=== PATIENT | female | born 1980 | race Caucasian/White ===

== ENCOUNTER 2016-12-22 21:00 | Inpatient (IN) | payer OTHER ==
[2016-12-22 21:49] VITALS: BMI 33.7
[2016-12-22 21:55] LABS: BASOPHIL 0.1 % (0-2.0); EOSINOPHIL 0.6 % (0-4.5); MCH 29.9 pg (25.7-33.7); MCHC 33.5 g/dl (32.0-36.0); MEAN CELL VOLUME 89.4 fl (80-96); MEAN PLT VOLUME 10.4 fl (7.5-11.1); NEUTROPHILS 70.4 % (42.8-82.8); PLATELET COUNT 121 K/MM3 (134-434); RDW 13.4 % (11.6-15.6); WHITE BLOOD COUNT 9.3 K/mm3 (4.0-10.0)
[2016-12-22 22:14] LABS: INR 0.93 (0.82-1.09); PROTHROMBIN TIME (PATIENT) 10.2 SEC (9.98-11.88)
[2016-12-22] MEDS ORDERED: DEXTROSE 5%-LACTATED RINGERS 1,000 ML IV ONE (22:15)
[2016-12-22 22:17] LABS: ACTIVATED PTT 29.2 SECONDS (26.9-34.4)
[2016-12-22 22:24] LABS: ANION GAP 11 (8-16); CALCIUM 8.7 mg/dL (8.5-10.1); CO2 23 mmol/L (21-32); CREATININE 0.5 mg/dL (0.55-1.02); GLUCOSE,RANDOM 80 mg/dL (74-106)
[2016-12-22] MEDS ORDERED: DEXTROSE 5%-LACTATED RINGERS 1,000 ML IV SCH (23:00)
--- NOTE | 2016-12-22 23:08 | HP ---
Past Medical History - Admission Chief Complaint: Labor pain History of Present Illness: 36 yo @ 39.5 weeks gestation, admitted for labor pain. She denies any vaginal bleeding nor ROM. History Source: Patient Limitations to Obtaining History: No Limitations - Past Medical History ...: 4 ...Para: 2 ...Term: 2 ...: 0 ...Spon : 1 ...Induced : 0 ...Multiple Gestation: 0 ...LMP: 03/26/16 ... Weeks Gestation by Dates: 38.5 ...EDC by Dates: 12/31/16 ...EDC by Sono: 12/24/16 - Past Surgical History Past Surgical History: Yes: None Hx Myomectomy: No Hx Transabdominal Cerclage: No - Smoking History Smoking history: Never smoked - Alcohol/Substance Use Hx Alcohol Use: No History of Substance Use: reports: None - Social History Usual Living Arrangement: Yes: With Spouse History of Recent Travel: No Home Medications - Allergies Allergies/Adverse Reactions: Allergies Allergy/AdvReac Type Severity Reaction Status Date / Time No Known Allergies Allergy Verified 12/22/16 22:01 - Home Medications Home Medications: Ambulatory Orders Vit #108/Iron/FA [ One Tablet] 1 capl PO DAILY 12/22/16 Family Disease History - Family Disease History Family History: Unremarkable Review of Systems - Review of Systems Constitutional: reports: No Symptoms Eyes: reports: No Symptoms HENT: reports: No Symptoms Neck: reports: No Symptoms Cardiovascular: reports: No Symptoms Respiratory: reports: No Symptoms Gastrointestinal: reports: No Symptoms Genitourinary: reports: Pain Breasts: reports: No Symptoms Reported Musculoskeletal: reports: No Symptoms Integumentary: reports: No Symptoms Neurological: reports: No Symptoms Endocrine: reports: No Symptoms Pain Intensity: 7 Physical Exam - Maternity Vital Signs: Vital Signs Temperature 98.0 F 12/22/16 22:00 Pulse Rate 69 12/22/16 22:00 Respiratory Rate 20 12/22/16 22:00 Blood Pressure 131/73 12/22/16 22:00 O2 Sat by Pulse Oximetry (%) Constitutional: Yes: Well Nourished Eyes: Yes: Conjunctiva Clear HENT: Yes: Atraumatic Neck: Yes: Supple, Trachea Midline Cardiovascular: Yes: Regular Rate and Rhythm Lungs: Clear to auscultation - Abdominal Exam/OB Number of Fetuses: Single Presentation: Vertex - Vaginal Exam/OB Vaginal Bleediing: No Presentation: Vertex/Position Station: -2 - Physical Exam ...Motor Strength: WNL Psychiatric: Yes: Alert, Oriented - Labs Lab Results: CBC, BMP 12/22/16 21:35 12/22/16 21:35 Problem List - Problems (1) Pain during labor Code(s): O99.89 - OTH DISEASES AND CONDITIONS COMPL PREG/CHLDBRTH R52 - PAIN, UNSPECIFIED Assessment/Plan Active labor Admit to L&D Analgesia PRN pain Anticipate
[2016-12-22] MEDS ORDERED: OXYTOCIN 15 UNITS/ LR 250 ML 250 ML IVPB SCH (23:15)
[2016-12-22] MEDS ORDERED: BUTORPHANOL TARTRATE 1 MG/ML VIAL IVPUSH PRN (23:42)
[2016-12-23] MEDS ORDERED: IBUPROFEN 600 MG TABLET (FP) PO PRN (00:21)
[2016-12-23] MEDS ORDERED: BENZOCAINE 28 GM HEMORRHOIDAL OINTMENT TP PRN (00:21)
[2016-12-23] MEDS ORDERED: BENZOCAINE 20% 57 GM BOTTLE TP PRN (00:21)
[2016-12-23] MEDS ORDERED: WITCH HAZEL 50% (TUCKS) 40 PAD/JAR PAD TP PRN (00:21)
[2016-12-23] MEDS ORDERED: ACETAMINOPHEN 325 MG TABLET (FP) PO PRN (00:21)
[2016-12-23] MEDS ORDERED: METHYLERGONOVINE MALEATE 0.2 MG/1 ML AMP IM PRN (00:21)
[2016-12-23] MEDS ORDERED: BISACODYL 10 MG SUPP.RECT RC PRN (00:21)
--- NOTE | 2016-12-23 00:26 | PN ---
Delivery - Delivery Vaginal Delivery: Spontaneous Episiotomy/Laceration: None EBL (cc): 300 Delivery, Single - Feeding Plan Initial Plan: Exclusive throughout hospitalization Remarks - Remarks Remarks: Normal spontaneous vaginal delivery of a live over midline episiotomy. Nose / Oropharynx suctioned @ perineum. Nuchal cord x 1 cut and clamped. Episiotomy repaired with 2.0 Chromic.
[2016-12-23] MEDS ORDERED: D5W-LR W/ 20 UNITS OXYTOCIN 1,000 ML IV SCH (00:30)
[2016-12-23] MEDS: FERROUS SO4 325 MG TABLET (FP) PO SCH ×3 (08:39→17:18)
[2016-12-23] MEDS: PRENATAL VITAMINS W/ FOLIC ACID TABLET (FP) PO SCH (09:10)
[2016-12-24 07:39] LABS: BASOPHIL 0.3 % (0-2.0); EOSINOPHIL 1.5 % (0-4.5); MCH 30.4 pg (25.7-33.7); MCHC 33.7 g/dl (32.0-36.0); MEAN CELL VOLUME 90.3 fl (80-96); MEAN PLT VOLUME 9.9 fl (7.5-11.1); NEUTROPHILS 63.3 % (42.8-82.8); PLATELET COUNT 112 K/MM3 (134-434); RDW 13.4 % (11.6-15.6); WHITE BLOOD COUNT 8.7 K/mm3 (4.0-10.0)
[2016-12-24] MEDS: FERROUS SO4 325 MG TABLET (FP) PO SCH ×3 (07:56→17:17)
[2016-12-24] MEDS: PRENATAL VITAMINS W/ FOLIC ACID TABLET (FP) PO SCH (09:29)
--- NOTE | 2016-12-24 12:44 | PN ---
Post Progress Note - Subjective Subjective: no complains Post Day: 1 Type of Delivery: Vital Signs: Vital Signs Temperature 97.6 F 12/24/16 09:51 Pulse Rate 70 12/24/16 09:51 Respiratory Rate 18 12/24/16 09:51 Blood Pressure 102/67 12/24/16 09:51 O2 Sat by Pulse Oximetry (%) 100 12/23/16 01:10 Breast Exam: Yes: Soft, Other (Bf ). No: Engorged Uterus: Yes: Fundus Firm, Fundus below umbilicus, Non-tender Lochia: Yes: Rubra Lochia, amount: Moderate Extremities: Yes: Calves non-tender. No: Edema Perineum: Yes: Intact, Laceration (suturing done . healing ) Activity: Ambulating - Labs Labs: CBC WBC 8.7 K/mm3 (4.0-10.0) 12/24/16 06:00 RBC 4.03 M/mm3 (3.60-5.2) 12/24/16 06:00 Hgb 12.2 GM/dL (10.7-15.3) 12/24/16 06:00 Hct 36.4 % (32.4-45.2) 12/24/16 06:00 MCV 90.3 fl (80-96) 12/24/16 06:00 MCH 30.4 pg (25.7-33.7) 12/24/16 06:00 MCHC 33.7 g/dl (32.0-36.0) 12/24/16 06:00 RDW 13.4 % (11.6-15.6) 12/24/16 06:00 Plt Count 112 K/MM3 (134-434) L 12/24/16 06:00 MPV 9.9 fl (7.5-11.1) 12/24/16 06:00 Neutrophils % 63.3 % (42.8-82.8) 12/24/16 06:00 Lymphocytes % 27.7 % (8-40) D 12/24/16 06:00 Monocytes % 7.2 % (3.8-10.2) 12/24/16 06:00 Eosinophils % 1.5 % (0-4.5) D 12/24/16 06:00 Basophils % 0.3 % (0-2.0) 12/24/16 06:00 Assessment/Plan stable plan discharge tomorrow.
[2016-12-24] MEDS ORDERED: SENNOSIDES/DOCUSATE COMBO (SENNA PLUS) TABLET (UD) PO PRN (22:00)
[2016-12-25 01:40] VITALS: PULSE 18
--- NOTE | 2016-12-25 08:09 | DS ---
Physical Exam-[employer] Vital Signs: Vital Signs Temperature 98.6 F 12/24/16 22:00 Pulse Rate 18 L 12/24/16 22:00 Respiratory Rate 86 H 12/24/16 22:00 Blood Pressure 110/72 12/24/16 22:00 O2 Sat by Pulse Oximetry (%) 100 12/23/16 01:10 Constitutional: Yes: Well Nourished, No Distress, Calm Eyes: Yes: WNL, Conjunctiva Clear, EOM Intact HENT: Yes: WNL, Atraumatic, Normocephalic Neck: Yes: WNL, Supple, Trachea Midline Cardiovascular: Yes: WNL, Regular Rate and Rhythm Respiratory: Yes: WNL, Regular, CTA Bilaterally Gastrointestinal: Yes: WNL ...Rectal Exam: Yes: WNL Renal/: Yes: WNL ....Post : Yes: Uterus firm, Uterus non-tender, Slight lochia rubra Breast(s): Yes: WNL Musculoskeletal: Yes: WNL Extremities: Yes: WNL Edema: No Integumentary: Yes: WNL Neurological: Yes: WNL, Alert, Oriented ...Motor Strength: WNL Psychiatric: Yes: WNL, Alert, Oriented Labs: CBC, BMP 12/24/16 06:00 12/22/16 21:35 Delivery - Delivery Vaginal Delivery: Spontaneous Type of Anesthesia: Local Episiotomy/Laceration: Midline EBL (cc): 300 Delivery, Single - Stages of Labor Date 1st Stage Initiatied: 12/22/16 Time 1st Stage Initiated: 12:00 Date 2nd Stage Initiated: 12/22/16 Time 2nd Stage Initiated: 23:50 Date of Delivery: 12/23/16 Time of Delivery: 00:01 Time Placenta Delivered: 00:05 Placenta: Yes: Spontaneous - Condition of Retanner/Keg Varnisher Present: No Infant Gender: Male Weight: 8 lb 3 oz Total Hours ROM (Hrs/Mins): 1h16m - 1 Minute Total Score: 8 5 Minutes Total Score: 9 - [place] Feeding Plan Initial Plan: Exclusive throughout hospitalization Discharge Summary Reason For Visit: ADMIT FOR LABOR Current Active Problems Pain during labor (Acute) Procedures: Principal: Condition: Good - Instructions Diet, Activity, Other Instructions: regular diet, follow up 4 weeks,at [facility] care Disposition: HOME - Home Medications Comprehensive Discharge Medication List: Ambulatory Orders Vit #108/Iron/FA [ One Tablet] 1 capl PO DAILY 12/22/16 Ibuprofen [Motrin -] 600 mg PO QID #28 tablet 12/24/16
[2016-12-25] MEDS: FERROUS SO4 325 MG TABLET (FP) PO SCH ×2 (08:54→12:00)
[2016-12-25] MEDS: PRENATAL VITAMINS W/ FOLIC ACID TABLET (FP) PO SCH (09:26)
[2016-12-25 09:58] VITALS: BP 112/56; TEMP 97.8
== END 2016-12-25 13:20 | disposition home or self-care (01) | DRG 560 ==
LOC: JDEL 21:00 → JLDR 21:01 → J3W 12-23 02:29
PROVIDERS: ADMIT Obstetrics & Gynecology; ATTEND Obstetrics & Gynecology
PROC: 0W8NXZZ Division of Female Perineum, External Approach (ICD-10-PCS; principal; 2016-12-23)
PROC: 10E0XZZ Delivery of Products of Conception, External Approach (ICD-10-PCS; 2016-12-23)
DX: O69.81X0 Labor and delivery complicated by cord around neck, without compression, not applicable or unspecified (principal); Z3A.39 39 weeks gestation of pregnancy; Z37.0 Single live birth
CPT/HCPCS: 36415; 59409; 80048; 85025; 85610; 85730; 86593; 86850; 86900; 86901